=== PATIENT | male | born 1975 | race Caucasian/White ===

== ENCOUNTER 2017-04-09 14:40 | Inpatient (IN) | payer OTHER ==
[2017-04-09] MEDS ORDERED: ADENOSINE 2 ML (14:59)
[2017-04-09] MEDS ORDERED: LORAZEPAM 2 MG INJ (15:07)
[2017-04-09 15:19] LABS: ADD MAN DIFF? NO
[2017-04-09 15:20] LABS: WHITE BLOOD COUNT 11.2 10^3/ul (4.8-10.8)
[2017-04-09 15:20] LABS: BASOPHILS % 0.2 % (0.0-2.0); HEMATOCRIT 38.1 % (42.0-52.0); HEMOGLOBIN 13.3 g/dl (14.0-18.0); LYMPHOCYTES # 2.3 10^3/ul (0.8-2.9); LYMPHOCYTES % 20.5 % (15.0-51.0); MEAN CORPUSCULAR HEMOGLOBIN 30.8 pg (29.0-33.0); MEAN CORPUSCULAR HGB CONC 34.9 g/dl (32.0-37.0); MEAN CORPUSCULAR VOLUME 88.2 fl (82.0-101.0); MEAN PLATELET VOLUME 9.3 fl (7.4-10.4); MONOCYTE # 0.5 10^3/ul (0.3-0.9); MONOCYTES % 4.5 % (0.0-11.0); NEUTROPHIL # 8.2 10^3/ul (1.6-7.5); NEUTROPHILS % 73.9 % (39.0-77.0); PLATELET COUNT 251 10^3/UL (140-415); RED BLOOD COUNT 4.32 10^6/ul (4.70-6.10); RED CELL DISTRIBUTION WIDTH 13.4 % (11.5-14.5)
[2017-04-09] MEDS: SOD CHLORIDE 0.9% 1,000 ML IV ×2 (15:20→18:30)
[2017-04-09] MEDS: LORAZEPAM 2 MG INJ IV ×2 (15:21→20:27)
[2017-04-09 15:26] LABS: INR 1.09; PROTIME 14.2 Sec (11.9-14.9); PT RATIO 1.1
[2017-04-09 15:33] LABS: ALANINE AMINOTRANSFERASE 43 IU/L (13-69); ALBUMIN 4.9 g/dl (3.3-4.9); ALKALINE PHOSPHATASE 82 IU/L (42-121); ANION GAP 27 (8-16); ASPARTATE AMINO TRANSFERASE 43 IU/L (15-46); BILIRUBIN,INDIRECT 0.1 mg/dl (0-1.1); BILIRUBIN,TOTAL 0.1 mg/dl (0.2-1.3); BLOOD UREA NITROGEN 6 mg/dl (7-20); CALCIUM 9.1 mg/dl (8.4-10.2); CARBON DIOXIDE 17 mmol/L (21-31); CHLORIDE 104 mmol/L (97-110); CREATININE 1.21 mg/dl (0.61-1.24); GLUCOSE 154 mg/dl (70-220); LIPASE 198 U/L (23-300); POTASSIUM 3.4 mmol/L (3.5-5.1); SODIUM 145 mmol/L (135-144); TOTAL PROTEIN 8.4 g/dl (6.1-8.1)
[2017-04-09 15:45] LABS: TROPONIN-I < 0.012 ng/ml (0.00-0.12)
[2017-04-09 16:04] LABS: ETHANOL < 10.0 mg/dl
[2017-04-09 18:25] LABS: OCCULT BLOOD STOOL POSITIVE (NEGATIVE)
[2017-04-09] MEDS ORDERED: ACETAMINOPHEN 325 MG TAB PO (19:00)
[2017-04-09] MEDS: PANTOPRAZOLE 40 MG INJ IV (20:22)
[2017-04-09] MEDS: ONDANSETRON 4 MG INJ IV (20:22)
[2017-04-10] MEDS: D5W-0.45 NACL + KCL 20 MEQ 1,000 ML IV ×2 (00:02→11:50)
[2017-04-10] MEDS: METOPROLOL 5 MG INJ IV (00:10)
[2017-04-10 01:08] LABS: ADD MAN DIFF? NO
[2017-04-10] MEDS: LORAZEPAM 2 MG INJ IV ×3 (01:09→23:53)
[2017-04-10 01:10] LABS: BASOPHILS % 0.3 % (0.0-2.0); HEMATOCRIT 35.6 % (42.0-52.0); HEMOGLOBIN 12.7 g/dl (14.0-18.0); LYMPHOCYTES # 2.8 10^3/ul (0.8-2.9); LYMPHOCYTES % 28.8 % (15.0-51.0); MEAN CORPUSCULAR HEMOGLOBIN 31.4 pg (29.0-33.0); MEAN CORPUSCULAR HGB CONC 35.7 g/dl (32.0-37.0); MEAN CORPUSCULAR VOLUME 88.1 fl (82.0-101.0); MEAN PLATELET VOLUME 9.3 fl (7.4-10.4); MONOCYTE # 0.9 10^3/ul (0.3-0.9); MONOCYTES % 9.5 % (0.0-11.0); NEUTROPHIL # 5.9 10^3/ul (1.6-7.5); NEUTROPHILS % 60.7 % (39.0-77.0); PLATELET COUNT 202 10^3/UL (140-415); RED BLOOD COUNT 4.04 10^6/ul (4.70-6.10); RED CELL DISTRIBUTION WIDTH 13.8 % (11.5-14.5)
[2017-04-10 01:10] LABS: WHITE BLOOD COUNT 9.7 10^3/ul (4.8-10.8)
[2017-04-10] MEDS: ONDANSETRON 4 MG INJ IV ×3 (01:36→14:50)
[2017-04-10] MEDS: PANTOPRAZOLE 40 MG INJ IV ×2 (06:04→18:25)
[2017-04-10 09:15] LABS: ADD MAN DIFF? NO
[2017-04-10] MEDS: ENALAPRILAT 1.25 MG INJ IV ×2 (09:26→21:49)
[2017-04-10] MEDS: THIAMINE 200 MG INJ IM (09:28)
[2017-04-10] MEDS: morphine 2 MG INJ IV ×3 (09:31→23:14)
[2017-04-10 09:50] LABS: ANION GAP 17 (8-16); BLOOD UREA NITROGEN 5 mg/dl (7-20); CALCIUM 8.7 mg/dl (8.4-10.2); CARBON DIOXIDE 24 mmol/L (21-31); CHLORIDE 107 mmol/L (97-110); CREATININE 0.92 mg/dl (0.61-1.24); GLUCOSE 129 mg/dl (70-220); MAGNESIUM 2.1 mg/dl (1.7-2.5); POTASSIUM 3.4 mmol/L (3.5-5.1); SODIUM 145 mmol/L (135-144)
[2017-04-10] MEDS: NACL IV (10:15)
[2017-04-10] MEDS: DEXTROSE IV (10:15)
[2017-04-10] MEDS: MULTIVITAMINS IV (10:15)
[2017-04-10] MEDS: POTASSIUM CHLORIDE IV (10:15)
[2017-04-10 10:19] LABS: BASOPHILS % 0.4 % (0.0-2.0); HEMATOCRIT 37.3 % (42.0-52.0); LYMPHOCYTES # 2.4 10^3/ul (0.8-2.9); LYMPHOCYTES % 33.2 % (15.0-51.0); MEAN CORPUSCULAR HEMOGLOBIN 31.2 pg (29.0-33.0); MEAN CORPUSCULAR HGB CONC 34.9 g/dl (32.0-37.0); MEAN CORPUSCULAR VOLUME 89.4 fl (82.0-101.0); MEAN PLATELET VOLUME 9.7 fl (7.4-10.4); MONOCYTE # 0.8 10^3/ul (0.3-0.9); MONOCYTES % 10.5 % (0.0-11.0); NEUTROPHIL # 3.9 10^3/ul (1.6-7.5); NEUTROPHILS % 55.2 % (39.0-77.0); PLATELET COUNT 200 10^3/UL (140-415); RED BLOOD COUNT 4.17 10^6/ul (4.70-6.10); RED CELL DISTRIBUTION WIDTH 13.8 % (11.5-14.5)
[2017-04-10 10:19] LABS: WHITE BLOOD COUNT 7.1 10^3/ul (4.8-10.8)
[2017-04-10 10:45] LABS: ADD MAN DIFF? NO
[2017-04-10 10:47] LABS: BASOPHILS % 0.3 % (0.0-2.0); EOSINOPHILS % 0.2 % (0.0-7.0); HEMOGLOBIN 13.9 g/dl (14.0-18.0); LYMPHOCYTES # 2.2 10^3/ul (0.8-2.9); LYMPHOCYTES % 32.7 % (15.0-51.0); MEAN CORPUSCULAR HGB CONC 34.8 g/dl (32.0-37.0); MEAN CORPUSCULAR VOLUME 89.3 fl (82.0-101.0); MEAN PLATELET VOLUME 9.4 fl (7.4-10.4); MONOCYTE # 0.6 10^3/ul (0.3-0.9); MONOCYTES % 9.2 % (0.0-11.0); NEUTROPHIL # 3.8 10^3/ul (1.6-7.5); PLATELET COUNT 205 10^3/UL (140-415); RED BLOOD COUNT 4.48 10^6/ul (4.70-6.10); RED CELL DISTRIBUTION WIDTH 13.5 % (11.5-14.5)
[2017-04-10 10:47] LABS: WHITE BLOOD COUNT 6.7 10^3/ul (4.8-10.8)
[2017-04-10 12:32] LABS: TROPONIN-I 0.024 ng/ml (0.00-0.12)
[2017-04-10] MEDS: NITROGLYCERIN (SL) 0.4 MG TAB SL ×4 (16:07→23:10)
[2017-04-10 16:22] LABS: TROPONIN-I 0.019 ng/ml (0.00-0.12)
[2017-04-10 18:51] LABS: ADD MAN DIFF? NO
[2017-04-10 18:53] LABS: BASOPHILS % 0.4 % (0.0-2.0); EOSINOPHILS % 0.2 % (0.0-7.0); HEMATOCRIT 39.6 % (42.0-52.0); HEMOGLOBIN 13.7 g/dl (14.0-18.0); LYMPHOCYTES % 38.7 % (15.0-51.0); MEAN CORPUSCULAR HEMOGLOBIN 31.1 pg (29.0-33.0); MEAN CORPUSCULAR HGB CONC 34.6 g/dl (32.0-37.0); MEAN CORPUSCULAR VOLUME 89.8 fl (82.0-101.0); MEAN PLATELET VOLUME 9.3 fl (7.4-10.4); MONOCYTE # 0.5 10^3/ul (0.3-0.9); MONOCYTES % 10.1 % (0.0-11.0); NEUTROPHIL # 2.6 10^3/ul (1.6-7.5); PLATELET COUNT 179 10^3/UL (140-415); RED BLOOD COUNT 4.41 10^6/ul (4.70-6.10)
[2017-04-10 18:53] LABS: WHITE BLOOD COUNT 5.3 10^3/ul (4.8-10.8)
[2017-04-11] MEDS: D5W-0.45 NACL + KCL 20 MEQ 1,000 ML IV ×3 (00:02→13:33)
[2017-04-11 00:48] LABS: TROPONIN-I 0.028 ng/ml (0.00-0.12)
[2017-04-11] MEDS: morphine 2 MG INJ IV ×5 (06:15→22:03)
[2017-04-11] MEDS: PANTOPRAZOLE 40 MG INJ IV ×2 (06:17→17:54)
[2017-04-11 06:42] LABS: ADD MAN DIFF? NO
[2017-04-11 06:48] LABS: WHITE BLOOD COUNT 6.2 10^3/ul (4.8-10.8)
[2017-04-11 06:48] LABS: BASOPHILS % 0.3 % (0.0-2.0); EOSINOPHILS % 0.3 % (0.0-7.0); HEMATOCRIT 40.1 % (42.0-52.0); LYMPHOCYTES # 2.2 10^3/ul (0.8-2.9); LYMPHOCYTES % 35.2 % (15.0-51.0); MEAN CORPUSCULAR HEMOGLOBIN 31.2 pg (29.0-33.0); MEAN CORPUSCULAR HGB CONC 34.9 g/dl (32.0-37.0); MEAN CORPUSCULAR VOLUME 89.3 fl (82.0-101.0); MEAN PLATELET VOLUME 9.5 fl (7.4-10.4); MONOCYTE # 0.5 10^3/ul (0.3-0.9); MONOCYTES % 8.1 % (0.0-11.0); NEUTROPHIL # 3.4 10^3/ul (1.6-7.5); NEUTROPHILS % 55.6 % (39.0-77.0); PLATELET COUNT 187 10^3/UL (140-415); RED BLOOD COUNT 4.49 10^6/ul (4.70-6.10); RED CELL DISTRIBUTION WIDTH 12.8 % (11.5-14.5)
[2017-04-11 07:42] LABS: ANION GAP 16 (8-16); BLOOD UREA NITROGEN 7 mg/dl (7-20); CALCIUM 9.1 mg/dl (8.4-10.2); CARBON DIOXIDE 25 mmol/L (21-31); CHLORIDE 106 mmol/L (97-110); CREATININE 0.93 mg/dl (0.61-1.24); GLUCOSE 116 mg/dl (70-220); POTASSIUM 3.6 mmol/L (3.5-5.1); SODIUM 143 mmol/L (135-144)
[2017-04-11] MEDS: THIAMINE 200 MG INJ IM (09:00)
[2017-04-11] MEDS: POTASSIUM CHLORIDE IV (09:50)
[2017-04-11] MEDS: DEXTROSE IV (09:50)
[2017-04-11] MEDS: NACL IV (09:50)
[2017-04-11] MEDS: MULTIVITAMINS IV (09:50)
[2017-04-11] MEDS: ENALAPRILAT 1.25 MG INJ IV ×2 (09:51→22:03)
[2017-04-11] MEDS: NITROGLYCERIN (SL) 0.4 MG TAB SL (12:36)
[2017-04-12] MEDS: morphine 2 MG INJ IV ×5 (02:34→20:56)
[2017-04-12] MEDS: D5W-0.45 NACL + KCL 20 MEQ 1,000 ML IV ×4 (03:50→23:36)
[2017-04-12] MEDS: PANTOPRAZOLE 40 MG INJ IV ×2 (05:39→17:34)
[2017-04-12] MEDS: NACL IV (09:00)
[2017-04-12] MEDS: DEXTROSE IV (09:00)
[2017-04-12] MEDS: MULTIVITAMINS IV (09:00)
[2017-04-12] MEDS: POTASSIUM CHLORIDE IV (09:00)
[2017-04-12] MEDS: ENALAPRILAT 1.25 MG INJ IV ×2 (09:00→20:57)
[2017-04-12] MEDS: THIAMINE 200 MG INJ IM (10:03)
[2017-04-12] MEDS: PEG/ELECTROLYTES 4L BTL PO (18:42)
[2017-04-12 21:28] LABS: ADD UMIC NO; UR ASCORBIC ACID NEGATIVE (NEGATIVE); UR BILIRUBIN (Dip) NEGATIVE (NEGATIVE); UR BLOOD (Dip) NEGATIVE (NEGATIVE); UR CLARITY CLEAR (CLEAR); UR COLOR YELLOW (YELLOW); UR GLUCOSE (Dip) NEGATIVE (NEGATIVE); UR KETONES (Dip) NEGATIVE (NEGATIVE); UR LEUKOCYTE ESTERASE (Dip) NEGATIVE Leu/ul (NEGATIVE); UR NITRITE (Dip) NEGATIVE (NEGATIVE); UR SPECIFIC GRAVITY (Dip) 1.009 (1.003-1.030); UR TOTAL PROTEIN (Dip) NEGATIVE (NEGATIVE); UR UROBILINOGEN (Dip) NEGATIVE (NEGATIVE)
[2017-04-13] MEDS: PANTOPRAZOLE 40 MG INJ IV ×2 (04:48→17:07)
[2017-04-13] MEDS: morphine 2 MG INJ IV ×4 (05:19→18:09)
[2017-04-13] MEDS: LORAZEPAM 2 MG INJ IV ×2 (06:30→21:27)
[2017-04-13] MEDS: THIAMINE 200 MG INJ IM (07:47)
[2017-04-13] MEDS: ENALAPRILAT 1.25 MG INJ IV ×2 (07:47→21:26)
[2017-04-13] MEDS: MULTIVITAMINS 10 ML, THIAMINE 100 MG, FOLIC ACID 1 MG in SOD CHLORIDE 0.9% 1,000 ML IVPB (07:54)
[2017-04-13 08:46] LABS: ADD MAN DIFF? NO
[2017-04-13 08:54] LABS: WHITE BLOOD COUNT 5.1 10^3/ul (4.8-10.8)
[2017-04-13 08:54] LABS: BASOPHILS % 0.6 % (0.0-2.0); EOSINOPHILS # 0.1 10^3/ul (0.0-0.5); EOSINOPHILS % 2.1 % (0.0-7.0); HEMATOCRIT 35.5 % (42.0-52.0); HEMOGLOBIN 12.7 g/dl (14.0-18.0); LYMPHOCYTES # 1.2 10^3/ul (0.8-2.9); LYMPHOCYTES % 22.8 % (15.0-51.0); MEAN CORPUSCULAR HEMOGLOBIN 31.4 pg (29.0-33.0); MEAN CORPUSCULAR HGB CONC 35.8 g/dl (32.0-37.0); MEAN CORPUSCULAR VOLUME 87.9 fl (82.0-101.0); MEAN PLATELET VOLUME 9.9 fl (7.4-10.4); MONOCYTE # 0.4 10^3/ul (0.3-0.9); MONOCYTES % 7.8 % (0.0-11.0); NEUTROPHIL # 3.4 10^3/ul (1.6-7.5); NEUTROPHILS % 66.1 % (39.0-77.0); PLATELET COUNT 155 10^3/UL (140-415); RED BLOOD COUNT 4.04 10^6/ul (4.70-6.10); RED CELL DISTRIBUTION WIDTH 12.8 % (11.5-14.5)
[2017-04-13 09:19] LABS: ANION GAP 15 (8-16); BLOOD UREA NITROGEN 11 mg/dl (7-20); CALCIUM 8.8 mg/dl (8.4-10.2); CARBON DIOXIDE 26 mmol/L (21-31); CHLORIDE 104 mmol/L (97-110); CREATININE 0.86 mg/dl (0.61-1.24); GLUCOSE 100 mg/dl (70-220); POTASSIUM 3.4 mmol/L (3.5-5.1); SODIUM 142 mmol/L (135-144)
[2017-04-13] MEDS: POTASSIUM CHLORIDE 100 ML IVPB (17:06)
[2017-04-13] MEDS: D5W-0.45 NACL + KCL 20 MEQ 1,000 ML IV (17:07)
[2017-04-13] MEDS: PROPOFOL 20 ML (19:18)
[2017-04-13] MEDS: LIDOCAINE 2% (SDV) 5 ML INJ (19:18)
[2017-04-13] MEDS: FENTAnyl 50 MCG/ML VIAL (19:18)
[2017-04-13] MEDS: MIDAZOLAM 1 MG/ML 2 ML INJ (19:18)
[2017-04-14] MEDS: morphine 2 MG INJ IV ×3 (01:14→14:16)
[2017-04-14] MEDS: PANTOPRAZOLE 40 MG INJ IV (05:20)
[2017-04-14 09:51] LABS: ADD MAN DIFF? NO
[2017-04-14] MEDS: ENALAPRILAT 1.25 MG INJ IV (09:53)
[2017-04-14] MEDS: MULTIVITAMINS 10 ML, THIAMINE 100 MG, FOLIC ACID 1 MG in SOD CHLORIDE 0.9% 1,000 ML IVPB (09:53)
[2017-04-14 09:58] LABS: WHITE BLOOD COUNT 6.7 10^3/ul (4.8-10.8)
[2017-04-14 09:58] LABS: BASOPHILS % 0.3 % (0.0-2.0); EOSINOPHILS # 0.2 10^3/ul (0.0-0.5); HEMATOCRIT 37.6 % (42.0-52.0); HEMOGLOBIN 12.8 g/dl (14.0-18.0); LYMPHOCYTES # 1.7 10^3/ul (0.8-2.9); LYMPHOCYTES % 25.7 % (15.0-51.0); MEAN CORPUSCULAR HEMOGLOBIN 31.2 pg (29.0-33.0); MEAN CORPUSCULAR VOLUME 91.7 fl (82.0-101.0); MEAN PLATELET VOLUME 9.8 fl (7.4-10.4); MONOCYTE # 0.7 10^3/ul (0.3-0.9); MONOCYTES % 9.8 % (0.0-11.0); NEUTROPHILS % 60.7 % (39.0-77.0); PLATELET COUNT 153 10^3/UL (140-415)
[2017-04-14 10:13] LABS: ANION GAP 13 (8-16); BLOOD UREA NITROGEN 10 mg/dl (7-20); CARBON DIOXIDE 30 mmol/L (21-31); CHLORIDE 105 mmol/L (97-110); CREATININE 0.92 mg/dl (0.61-1.24); GLUCOSE 96 mg/dl (70-220); SODIUM 144 mmol/L (135-144)
[2017-04-14] MEDS: THIAMINE 200 MG INJ IM (12:55)
== END 2017-04-14 18:16 | disposition home or self-care (01) | DRG 378 ==
LOC: MS4 18:51 → E/R 14:40
PROC: 0DB68ZX Excision of Stomach, Via Natural or Artificial Opening Endoscopic, Diagnostic (ICD-10-PCS; principal; 2017-04-13 18:20)
PROC: 0DJD8ZZ Inspection of Lower Intestinal Tract, Via Natural or Artificial Opening Endoscopic (ICD-10-PCS; 2017-04-13 18:20)
DX: K92.0 Hematemesis (principal); F10.239 Alcohol dependence with withdrawal, unspecified; I11.0 Hypertensive heart disease with heart failure; E87.2 Acidosis; I50.20 Unspecified systolic (congestive) heart failure; I47.1 Supraventricular tachycardia; E87.6 Hypokalemia; R55 Syncope and collapse; D64.9 Anemia, unspecified; E78.5 Hyperlipidemia, unspecified; N40.0 Benign prostatic hyperplasia without lower urinary tract symptoms; K29.70 Gastritis, unspecified, without bleeding; K64.4 Residual hemorrhoidal skin tags; Z87.891 Personal history of nicotine dependence; Z79.82 Long term (current) use of aspirin
CPT/HCPCS: 36415; 70450; 71045; 80048; 80053; 80306; 81003; 82270; 82962; 83690; 83735; 84484; 85025; 85610; 87086; 88305; 88312; 93005; 96374; 96375; 96376; 99291-25

== ENCOUNTER 2017-06-30 16:39 | Emergency (ER) | payer OTHER ==
[2017-06-30] MEDS: morphine 4 MG/ML VIAL IV ×2 (17:47→19:01)
[2017-06-30] MEDS: ONDANSETRON 4 MG INJ IV (17:47)
[2017-06-30] MEDS: KETOROLAC 30 MG INJ IV (17:47)
[2017-06-30] MEDS: SOD CHLORIDE 0.9% 1,000 ML IV (17:48)
[2017-06-30 17:53] LABS: ADD MAN DIFF? NO
[2017-06-30 17:55] LABS: WHITE BLOOD COUNT 5.7 10^3/ul (4.8-10.8)
[2017-06-30 17:55] LABS: BASOPHILS % 0.5 % (0.0-2.0); EOSINOPHILS # 0.1 10^3/ul (0.0-0.5); EOSINOPHILS % 1.2 % (0.0-7.0); HEMATOCRIT 41.7 % (42.0-52.0); HEMOGLOBIN 14.7 g/dl (14.0-18.0); LYMPHOCYTES # 3.1 10^3/ul (0.8-2.9); MEAN CORPUSCULAR HEMOGLOBIN 32.5 pg (29.0-33.0); MEAN CORPUSCULAR HGB CONC 35.3 g/dl (32.0-37.0); MEAN CORPUSCULAR VOLUME 92.3 fl (82.0-101.0); MEAN PLATELET VOLUME 9.4 fl (7.4-10.4); MONOCYTE # 0.5 10^3/ul (0.3-0.9); MONOCYTES % 8.8 % (0.0-11.0); PLATELET COUNT 196 10^3/UL (140-415); RED BLOOD COUNT 4.52 10^6/ul (4.70-6.10); RED CELL DISTRIBUTION WIDTH 12.6 % (11.5-14.5)
[2017-06-30 18:19] LABS: ALANINE AMINOTRANSFERASE 100 IU/L (13-69); ALBUMIN 4.9 g/dl (3.3-4.9); ALBUMIN/GLOBULIN RATIO 1.11; ALKALINE PHOSPHATASE 83 IU/L (42-121); ANION GAP 24 (8-16); ASPARTATE AMINO TRANSFERASE 144 IU/L (15-46); BILIRUBIN,INDIRECT 0.1 mg/dl (0-1.1); BILIRUBIN,TOTAL 0.1 mg/dl (0.2-1.3); BLOOD UREA NITROGEN 8 mg/dl (7-20); CALCIUM 8.9 mg/dl (8.4-10.2); CARBON DIOXIDE 21 mmol/L (21-31); CHLORIDE 109 mmol/L (97-110); CREATININE 0.96 mg/dl (0.61-1.24); GLUCOSE 136 mg/dl (70-220); LIPASE 175 U/L (23-300); POTASSIUM 3.5 mmol/L (3.5-5.1); SODIUM 150 mmol/L (135-144); TOTAL PROTEIN 9.3 g/dl (6.1-8.1)
[2017-06-30] MEDS ORDERED: HYDROmorphONE 1 MG/5 ML IV SYRINGE IV (18:52)
[2017-06-30] MEDS: PANTOPRAZOLE 40 MG INJ IV (19:01)
== END 2017-06-30 21:37 | disposition home or self-care (01) ==
LOC: FTE 16:39
DX: S29.012A Strain of muscle and tendon of back wall of thorax, initial encounter (principal); R10.12 Left upper quadrant pain; I10 Essential (primary) hypertension; E11.9 Type 2 diabetes mellitus without complications; X58.XXXA Exposure to other specified factors, initial encounter; Y92.9 Unspecified place or not applicable; Z79.82 Long term (current) use of aspirin; Z87.891 Personal history of nicotine dependence
CPT/HCPCS: 36415; 74176; 80053; 80306; 83690; 85025; 96374; 96375; 96376; 99285-25

== ENCOUNTER 2017-08-28 22:08 | Emergency (ER) | payer OTHER ==
[2017-08-28 22:29] LABS: ADD MAN DIFF? NO
[2017-08-28 22:31] LABS: BASOPHILS % 0.4 % (0.0-2.0); EOSINOPHILS % 0.6 % (0.0-7.0); HEMATOCRIT 41.5 % (42.0-52.0); HEMOGLOBIN 14.5 g/dl (14.0-18.0); LYMPHOCYTES # 3.5 10^3/ul (0.8-2.9); LYMPHOCYTES % 50.3 % (15.0-51.0); MEAN CORPUSCULAR HEMOGLOBIN 31.3 pg (29.0-33.0); MEAN CORPUSCULAR HGB CONC 34.9 g/dl (32.0-37.0); MEAN CORPUSCULAR VOLUME 89.6 fl (82.0-101.0); MEAN PLATELET VOLUME 9.6 fl (7.4-10.4); MONOCYTE # 0.7 10^3/ul (0.3-0.9); MONOCYTES % 10.6 % (0.0-11.0); NEUTROPHIL # 2.6 10^3/ul (1.6-7.5); NEUTROPHILS % 37.7 % (39.0-77.0); PLATELET COUNT 168 10^3/UL (140-415); RED BLOOD COUNT 4.63 10^6/ul (4.70-6.10); RED CELL DISTRIBUTION WIDTH 12.1 % (11.5-14.5)
[2017-08-28 22:31] LABS: WHITE BLOOD COUNT 6.9 10^3/ul (4.8-10.8)
[2017-08-28 22:58] LABS: ALANINE AMINOTRANSFERASE 90 IU/L (13-69); ALBUMIN 4.9 g/dl (3.3-4.9); ALKALINE PHOSPHATASE 78 IU/L (42-121); ANION GAP 20 (8-16); ASPARTATE AMINO TRANSFERASE 104 IU/L (15-46); BILIRUBIN,INDIRECT 0.7 mg/dl (0-1.1); BILIRUBIN,TOTAL 0.7 mg/dl (0.2-1.3); BLOOD UREA NITROGEN 11 mg/dl (7-20); CALCIUM 8.8 mg/dl (8.4-10.2); CARBON DIOXIDE 22 mmol/L (21-31); CHLORIDE 105 mmol/L (97-110); CREATININE 1.11 mg/dl (0.61-1.24); GLUCOSE 135 mg/dl (70-220); POTASSIUM 3.1 mmol/L (3.5-5.1); SODIUM 144 mmol/L (135-144); TOTAL PROTEIN 8.4 g/dl (6.1-8.1)
[2017-08-28 23:06] LABS: ACETAMINOPHEN < 10.0 ug/ml (10.0-30.0); SALICYLATE < 1.0 mg/dl (5.0-30.0)
[2017-08-28 23:09] LABS: TROPONIN-I 0.024 ng/ml (0.000-0.120)
[2017-08-28] MEDS: SOD CHLORIDE 0.9% 1,000 ML IV (23:42)
[2017-08-29] MEDS: ONDANSETRON 4 MG INJ IV (05:40)
== END 2017-08-29 06:24 | disposition home or self-care (01) ==
LOC: E/R 08-29 06:24
DX: F10.921 Alcohol use, unspecified with intoxication delirium (principal); I10 Essential (primary) hypertension; E11.9 Type 2 diabetes mellitus without complications; R41.82 Altered mental status, unspecified; Z79.82 Long term (current) use of aspirin
CPT/HCPCS: 36415; 70450; 71045; 80053; 80307; 82962; 84484; 85025; 93005; 96374; 99291-25

== ENCOUNTER 2018-06-26 08:25 | Emergency (ER) | payer OTHER ==
[2018-06-26 09:05] LABS: ADD MAN DIFF? NO
[2018-06-26 09:09] LABS: BASOPHILS % 0.4 % (0.0-2.0); EOSINOPHILS # 0.1 10^3/ul (0.0-0.5); EOSINOPHILS % 1.5 % (0.0-7.0); HEMATOCRIT 39.1 % (42.0-52.0); HEMOGLOBIN 13.4 g/dl (14.0-18.0); LYMPHOCYTES # 4.1 10^3/ul (0.8-2.9); LYMPHOCYTES % 60.6 % (15.0-51.0); MEAN CORPUSCULAR HEMOGLOBIN 29.5 pg (29.0-33.0); MEAN CORPUSCULAR HGB CONC 34.3 g/dl (32.0-37.0); MEAN CORPUSCULAR VOLUME 85.9 fl (82.0-101.0); MEAN PLATELET VOLUME 9.7 fl (7.4-10.4); MONOCYTE # 0.5 10^3/ul (0.3-0.9); MONOCYTES % 6.8 % (0.0-11.0); NEUTROPHILS % 29.8 % (39.0-77.0); PLATELET COUNT 188 10^3/UL (140-415); RED BLOOD COUNT 4.55 10^6/ul (4.70-6.10); RED CELL DISTRIBUTION WIDTH 12.4 % (11.5-14.5)
[2018-06-26 09:09] LABS: WHITE BLOOD COUNT 6.8 10^3/ul (4.8-10.8)
[2018-06-26] MEDS: KETOROLAC 15 MG INJ IV (09:10)
[2018-06-26] MEDS: ASPIRIN 81 MG TAB PO (09:21)
[2018-06-26] MEDS: FENTAnyl 50 MCG/ML VIAL IV (09:21)
[2018-06-26 09:26] LABS: ANION GAP 14 (5-13); BLOOD UREA NITROGEN 7 mg/dl (7-20); CALCIUM 8.5 mg/dl (8.4-10.2); CARBON DIOXIDE 26 mmol/L (21-31); CHLORIDE 108 mmol/L (97-110); CREATININE 0.89 mg/dl (0.61-1.24); Estimated GFR > 60 mL/min (>60); GLUCOSE 171 mg/dl (70-220); POTASSIUM 3.3 mmol/L (3.5-5.1); SODIUM 148 mmol/L (135-144)
[2018-06-26 09:29] LABS: INR 1.09; PROTIME 14.2 Sec (11.9-14.9); PT RATIO 1.1
[2018-06-26 09:37] LABS: TROPONIN-I < 0.012 ng/ml (0.000-0.120)
[2018-06-26 14:03] LABS: TROPONIN-I < 0.012 ng/ml (0.000-0.120)
== END 2018-06-26 15:25 | disposition home or self-care (01) ==
LOC: E/R 08:25
DX: T82.847A Pain due to cardiac prosthetic devices, implants and grafts, initial encounter (principal); D64.9 Anemia, unspecified; F10.920 Alcohol use, unspecified with intoxication, uncomplicated; E87.6 Hypokalemia; I11.0 Hypertensive heart disease with heart failure; I50.9 Heart failure, unspecified; E11.9 Type 2 diabetes mellitus without complications; Y71.2 Prosthetic and other implants, materials and accessory cardiovascular devices associated with adverse incidents; Z95.0 Presence of cardiac pacemaker; Z87.891 Personal history of nicotine dependence
CPT/HCPCS: 36415; 71045; 80048; 80307; 84484; 85025; 85610; 93005; 96374; 96375; 99285-25

== ENCOUNTER 2018-10-03 00:23 | Observation (INO) | payer OTHER ==
[2018-10-03 00:48] LABS: ADD MAN DIFF? NO
[2018-10-03 00:50] LABS: BASOPHILS % 0.3 % (0.0-2.0); EOSINOPHILS # 0.1 10^3/ul (0.0-0.5); EOSINOPHILS % 0.9 % (0.0-7.0); HEMOGLOBIN 14.4 g/dl (14.0-18.0); LYMPHOCYTES # 3.4 10^3/ul (0.8-2.9); LYMPHOCYTES % 52.4 % (15.0-51.0); MEAN CORPUSCULAR HEMOGLOBIN 31.5 pg (29.0-33.0); MEAN CORPUSCULAR HGB CONC 34.3 g/dl (32.0-37.0); MEAN CORPUSCULAR VOLUME 91.9 fl (82.0-101.0); MEAN PLATELET VOLUME 9.7 fl (7.4-10.4); MONOCYTE # 0.6 10^3/ul (0.3-0.9); MONOCYTES % 8.5 % (0.0-11.0); NEUTROPHIL # 2.4 10^3/ul (1.6-7.5); PLATELET COUNT 166 10^3/UL (140-415); RED BLOOD COUNT 4.57 10^6/ul (4.70-6.10); RED CELL DISTRIBUTION WIDTH 12.6 % (11.5-14.5)
[2018-10-03 00:50] LABS: WHITE BLOOD COUNT 6.5 10^3/ul (4.8-10.8)
[2018-10-03] MEDS: ASPIRIN 325 MG TAB PO (00:55)
[2018-10-03] MEDS: NITROGLYCERIN (SL) 0.4 MG TAB SL (00:56)
[2018-10-03 01:15] LABS: ANION GAP 13 (5-13); BLOOD UREA NITROGEN 7 mg/dl (7-20); CALCIUM 8.3 mg/dl (8.4-10.2); CARBON DIOXIDE 27 mmol/L (21-31); CHLORIDE 105 mmol/L (97-110); CREATININE 0.88 mg/dl (0.61-1.24); Estimated GFR > 60 mL/min (>60); GLUCOSE 130 mg/dl (70-220); POTASSIUM 3.4 mmol/L (3.5-5.1); SODIUM 145 mmol/L (135-144)
[2018-10-03 01:27] LABS: TROPONIN-I 0.037 ng/ml (0.000-0.120)
[2018-10-03] MEDS ORDERED: ACETAMINOPHEN 325 MG TAB PO (02:00)
[2018-10-03] MEDS ORDERED: ONDANSETRON 4 MG INJ IV (02:00)
[2018-10-03] MEDS: morphine 2 MG INJ IV (04:18)
[2018-10-03] MEDS: ONDANSETRON 4 MG INJ IV (04:18)
[2018-10-03] MEDS: ENOXAPARIN 30 MG/0.3 ML SYG SC (08:29)
[2018-10-03 08:33] LABS: ADD MAN DIFF? NO
[2018-10-03 08:42] LABS: BASOPHILS % 0.4 % (0.0-2.0); EOSINOPHILS # 0.1 10^3/ul (0.0-0.5); EOSINOPHILS % 1.6 % (0.0-7.0); HEMATOCRIT 40.3 % (42.0-52.0); HEMOGLOBIN 13.6 g/dl (14.0-18.0); LYMPHOCYTES # 1.8 10^3/ul (0.8-2.9); LYMPHOCYTES % 32.8 % (15.0-51.0); MEAN CORPUSCULAR HEMOGLOBIN 31.3 pg (29.0-33.0); MEAN CORPUSCULAR HGB CONC 33.7 g/dl (32.0-37.0); MEAN CORPUSCULAR VOLUME 92.6 fl (82.0-101.0); MEAN PLATELET VOLUME 10.4 fl (7.4-10.4); MONOCYTE # 0.4 10^3/ul (0.3-0.9); MONOCYTES % 6.3 % (0.0-11.0); NEUTROPHIL # 3.2 10^3/ul (1.6-7.5); PLATELET COUNT 153 10^3/UL (140-415); RED BLOOD COUNT 4.35 10^6/ul (4.70-6.10); RED CELL DISTRIBUTION WIDTH 12.5 % (11.5-14.5)
[2018-10-03 08:42] LABS: WHITE BLOOD COUNT 5.6 10^3/ul (4.8-10.8)
[2018-10-03 09:13] LABS: ANION GAP 12 (5-13); BLOOD UREA NITROGEN 6 mg/dl (7-20); CALCIUM 7.9 mg/dl (8.4-10.2); CARBON DIOXIDE 26 mmol/L (21-31); CHLORIDE 105 mmol/L (97-110); Estimated GFR > 60 mL/min (>60); GLUCOSE 114 mg/dl (70-220); POTASSIUM 3.4 mmol/L (3.5-5.1); SODIUM 143 mmol/L (135-144); TROPONIN-I 0.032 ng/ml (0.000-0.120)
[2018-10-03 09:14] LABS: CK INDEX 0.5; CREATINE KINASE 1286 IU/L (23-200)
[2018-10-03 09:16] LABS: CK-MB 6.68 ng/ml (0.0-2.4)
[2018-10-03] MEDS: POTASSIUM CHLORIDE (SR) 20 MEQ TAB PO (09:52)
== END 2018-10-03 10:10 | disposition left against medical advice (07) ==
LOC: E/R 00:23 → 6WM 01:56
DX: R07.9 Chest pain, unspecified (principal); F10.129 Alcohol abuse with intoxication, unspecified; Y90.8 Blood alcohol level of 240 mg/100 ml or more; E11.9 Type 2 diabetes mellitus without complications; I11.0 Hypertensive heart disease with heart failure; I50.9 Heart failure, unspecified; Z95.0 Presence of cardiac pacemaker; F17.200 Nicotine dependence, unspecified, uncomplicated; F32.9 Major depressive disorder, single episode, unspecified
CPT/HCPCS: 36415; 71045; 80048; 80307; 82550; 82553; 84484; 85025; 93005; 99285-25; G0378

== ENCOUNTER 2018-10-04 11:45 | Emergency (ER) | payer OTHER ==
[2018-10-04] MEDS ORDERED: HALOPERIDOL 5 MG INJ (11:59)
[2018-10-04] MEDS: HALOPERIDOL 5 MG INJ IM (12:04)
== END 2018-10-04 14:49 | disposition left against medical advice (07) ==
LOC: E/R 11:45
DX: F10.921 Alcohol use, unspecified with intoxication delirium (principal); R41.82 Altered mental status, unspecified; Z95.0 Presence of cardiac pacemaker
CPT/HCPCS: 70450; 71045; 82962; 93005; 96372; 99285-25

== ENCOUNTER 2018-10-05 17:51 | Emergency (ER) | payer OTHER ==
[2018-10-05 18:30] LABS: ADD MAN DIFF? NO
[2018-10-05] MEDS ORDERED: LORAZEPAM 2 MG INJ IV (18:30)
[2018-10-05 18:33] LABS: BASOPHILS % 0.6 % (0.0-2.0); EOSINOPHILS # 0.1 10^3/ul (0.0-0.5); EOSINOPHILS % 1.9 % (0.0-7.0); HEMATOCRIT 43.3 % (42.0-52.0); HEMOGLOBIN 14.6 g/dl (14.0-18.0); LYMPHOCYTES # 1.2 10^3/ul (0.8-2.9); LYMPHOCYTES % 24.6 % (15.0-51.0); MEAN CORPUSCULAR HEMOGLOBIN 31.4 pg (29.0-33.0); MEAN CORPUSCULAR HGB CONC 33.7 g/dl (32.0-37.0); MEAN CORPUSCULAR VOLUME 93.1 fl (82.0-101.0); MEAN PLATELET VOLUME 10.1 fl (7.4-10.4); MONOCYTE # 0.3 10^3/ul (0.3-0.9); MONOCYTES % 6.8 % (0.0-11.0); NEUTROPHILS % 64.4 % (39.0-77.0); PLATELET COUNT 126 10^3/UL (140-415); POSITIVE DIFF @See below; RED BLOOD COUNT 4.65 10^6/ul (4.70-6.10); RED CELL DISTRIBUTION WIDTH 12.5 % (11.5-14.5)
[2018-10-05 18:33] LABS: WHITE BLOOD COUNT 4.7 10^3/ul (4.8-10.8)
[2018-10-05 18:50] LABS: ALANINE AMINOTRANSFERASE 209 IU/L (13-69); ALBUMIN/GLOBULIN RATIO 1.16; ALKALINE PHOSPHATASE 91 IU/L (42-121); ANION GAP 19 (5-13); ASPARTATE AMINO TRANSFERASE 378 IU/L (15-46); BILIRUBIN,INDIRECT 0.5 mg/dl (0-1.1); BILIRUBIN,TOTAL 0.5 mg/dl (0.2-1.3); BLOOD UREA NITROGEN 6 mg/dl (7-20); CALCIUM 9.3 mg/dl (8.4-10.2); CARBON DIOXIDE 25 mmol/L (21-31); CHLORIDE 105 mmol/L (97-110); CREATININE 1.21 mg/dl (0.61-1.24); Estimated GFR > 60 mL/min (>60); GLUCOSE 150 mg/dl (70-220); LIPASE 208 U/L (23-300); SODIUM 149 mmol/L (135-144); TOTAL PROTEIN 9.3 g/dl (6.1-8.1)
[2018-10-05] MEDS: SOD CHLORIDE 0.9% 500 ML IV (19:01)
[2018-10-05 19:02] LABS: TROPONIN-I 0.021 ng/ml (0.000-0.120)
[2018-10-05 19:04] LABS: AADO2 Arterial 89.8 mmHg (7.0-24.0); Allen Test ACCEPTAB; Arterial Base Excess -3.4 mmol/L (-3.0-3); Arterial Blood Gas Oxygen Sat 95.6 mmHG (95.0-98.0); Arterial COHb 0.6 % (0.0-3.0); Arterial Fraction of Oxyhgb 94.6 % (93.0-99.0); Arterial HCO3 22.6 mmol/L (22.0-26.0); Arterial MetHb 0.4 % (0.0-1.5); Arterial pCO2 44.3 mmhg (35-45); MODE NASAL CANNULA; Site Right Radial
[2018-10-05 19:07] LABS: POTASSIUM 3.3 mmol/L (3.5-5.1)
== END 2018-10-06 00:29 | disposition home or self-care (01) ==
LOC: E/R 10-06 00:29
DX: F10.929 Alcohol use, unspecified with intoxication, unspecified (principal); R40.2122 Coma scale, eyes open, to pain, at arrival to emergency department; R40.2242 Coma scale, best verbal response, confused conversation, at arrival to emergency department; I11.0 Hypertensive heart disease with heart failure; I50.9 Heart failure, unspecified; Z95.0 Presence of cardiac pacemaker
CPT/HCPCS: 36415; 36600; 71045; 80053; 80307; 82803; 83690; 84484; 85025; 93005; 99284-25